=== PATIENT | male | born 1985 | race Caucasian/White ===

== ENCOUNTER 2019-05-07 03:44 | Emergency (ER) | payer OTHER, SELFPAY ==
--- NOTE | ~2019-05-07 | CT_ITS ---
EXAMINATION: CT abdomen pelvis w con DATE: 05/07/2019 04:47 INDICATION: Left upper quadrant abdominal pain TECHNIQUE: Computed tomography (CT) of the abdomen and pelvis was performed with 100 cc Omnipaque 350 intravenous contrast. The dose-length product was 342.69 mGy-cm. Automated exposure control and iter ative reconstruction technique were employed. COMPARISON: None. FINDINGS: Lung bases unremarkable. Heart size normal. No pleural or pericardial effusion. No signific ant vascular abnormality. No lymphadenopathy. The liver, spleen, pancreas, adrenal glands and kidneys are unremarkable. Gallbladder is present. Mil d sigmoid diverticulosis without diverticulitis. Mild bladder wall prominence, likely due to underdis tention, although cystitis should be considered in the appropriate clinical setting. No bowel obstruc tion. No free air or free fluid. IMPRESSION: 1. Mild bladder wall prominence, likely due to underdistention, although cystitis should be considere d in the appropriate clinical setting. Reviewed, dictated and finalized at location A. LIFT MULE OPERATOR IMPRESSION: 1. Mild bladder wall prominence, likely due to underdistention, although cystit is should be considered in the appropriate clinical setting.
--- NOTE | ~2019-05-07 | XR_ITS ---
[[id number] ] INDICATION: Left lower rib pain TECHNIQUE: Frontal projection of the upper left ribs, frontal projection of the lower left ribs, obli que projection of all the left ribs, frontal inspiratory chest x-ray for interpretation. FINDINGS: There are no displaced rib fractures identified. There are no soft tissue abnormality see n. The lungs are clear. IMPRESSION: 1:No displaced rib fractures. Reviewed, dictated and finalized at location A. EL MECHANIC HELPER
[2019-05-07 03:47] VITALS: BP 146/89; PULSE 71; RESP 18; TEMP 36.4; O2SAT 94
[2019-05-07 04:06] LABS: Basophils Absolute Auto 0.1 K/mm3 (0.0-0.1); Basophils Percent Auto 0.9 % (0.2-1.2); Eosinophils Absolute Auto 0.1 K/mm3 (0-0.3); Hematocrit 44.9 % (42.0-52.0); Hemoglobin 15.1 g/dL (14.0-18.0); Immature Granulocyte Absolute 0.01 K/mm3 (0.00-0.031); Immature Granulocyte Percent A 0.1 % (0-0.5); Lymphocytes Absolute Auto 2.24 K/mm3 (0.9-3.2); Lymphocytes Percent Auto 32.6 % (18.3-44.2); Mean Corpuscular HGB Conc 33.6 g/dl (32-36); Mean Corpuscular Hemoglobin 31.8 pg (26-34); Mean Corpuscular Volume 94.5 fl (80-100); Mean Platelet Volume 9.8 fl (7.4-10.4); Monocytes Absolute Auto 0.7 K/mm3 (0.1-0.6); Neutrophils Absolute Auto 3.7 K/mm3 (1.3-6.7); Neutrophils Percent Auto 54.4 % (45.5-73.1); Platelet Count Result 253 k/mm3 (150-375); Red Blood Count 4.75 M/mm3 (4.6-6.20); White Blood Count 6.9 K/mm3 (4.5-10.0)
[2019-05-07 04:15] LABS: Add Urine Microscopic? YES; Appearance Urine Clear (Clear); Bacteria Urine Trace /hpf; Bilirubin Urine Negative (Negative); Blood Urine Negative (Negative); Color Urine Yellow (Yellow); Glucose Urine UA Negative (Negative); Ketones Urine 1+ mg/dL (Negative); Leukocyte Esterase Ur Negative LEU/UL (Negative); Mucus Urine Heavy /lpf; Nitrate Urine Negative (Negative); Protein Urine 1+ mg/dL (Negative); RBC Urine 0-2 /hpf (0-2); Specific Grav Ur 1.025 (1.001-1.035); Urobilinogen Urine Negative mg/dL (<2.0); WBC Urine 0-3 /hpf
[2019-05-07 04:18] LABS: Alanine Aminotransferase 27 U/L (4-50); Albumin Level 4.8 g/dL (3.5-5.1); Alkaline Phosphatase 117 U/L (38-126); Aspartate Amino Transferase 37 U/L (17-59); Bilirubin,Total 0.5 mg/dL (0.2-1.3); Blood Urea Nitrogen 13 mg/dL (9-20); Calcium 9.4 mg/dL (8.4-10.2); Carbon Dioxide 25 mmol/L (22-30); Chloride 99 mmol/L (98-107); Estimated CRCL calculation 127 ml/min; Estimated Glomerular Filt Rate > 60; Glucose 110 mg/dL (75-110); Lipase 184 U/L (23-300); Potassium 3.6 mmol/L (3.4-5.0); Sodium 141 mmol/L (137-145)
[2019-05-07] MEDS: KETOROLAC 30 MG/ML VIAL (*BKC) IV PUSH (04:28)
[2019-05-07 04:58] VITALS: TEMP 36.4
--- NOTE | 2019-05-07 05:47 | ED.ABDPAIN ---
HPI - Abdominal Pain General Chief Complaint: Abdominal Pain Stated Complaint: abd pain Time Seen by Provider: 05/07/19 03:47 Source: RN notes reviewed History of Present Illness HPI narrative: Patient presents to emergency department from home for left lower lateral rib pain and upper abdominal pain. Patient states symptoms began 6 days ago. Pain is located over the left lateral ribs and into the left upper quadrant patient states the pain is worse with movement and pressing in the area. He denies any fevers or chills chest pain shortness of breath nausea vomiting diarrhea or any other symptoms. States he is taking a previous pain medication for the symptoms this evening. He denies any known trauma or injury. Related Data Allergies Allergy/AdvReac Type Severity Reaction Status Date / Time Penicillins Allergy Unknown Unknown Verified 05/07/19 03:53 Review of Systems Review of Systems: Narrative: Gen.: Denies fevers or chills ENT: Denies congestion Respiratory: Denies shortness of breath or cough CV: Denies chest pain or palpitations GI: See HPI denies burning, urgency, frequency or hematuria Musculoskeletal: Denies back pain or muscle pain Neuro: Denies numbness, tingling, weakness or focal weakness Skin: Denies rash Except as documented, all other systems reviewed and negative [facility] Past Medical History Medical History (Updated 05/07/19 @ 05:53 by Sai Washburn DO) Anxiety Social History Social History (Updated 05/07/19 @ 05:49 by Sai Washburn DO) Smoking packs per day: 0.25 Smoking cigarettes per day: 5.0 Exam Narrative: Exam Narrative: APPEARANCE: No acute distress, nontoxic, resting in bed HEENT: Normocephalic, atraumatic, OMM RESPIRATORY: No respiratory distress, clear to auscultation bilaterally with no rhonchi wheezing or rales CARDIOVASCULAR: RRR s murmur Chest: Tender palpation of the left lateral ribs 9 and 10 no overlying erythema or ecchymosis, pain with rotation of the torso and deep inspiration ABDOMINAL: Soft, nondistended, tender to palpation in left upper quadrant no tenderness in right upper quadrant, right lower quadrant and left lower quadrant, no rebound or guarding MUSCULOSKELETAl: Moves all extremities. No clubbing, cyanosis or edema. Bilateral calves soft nontender NEURO: Awake and alert. Following commands, speech normal, no focal deficits SKIN:: Warm, dry. Normal Color PSYCHIATRIC: Normal affect/mood Course Course Emergency Course: Patient states improvement of pain following medication. States while he is sitting in bed he has no pain. States he does have pain again when he begins to sit up and rotate but no pain with sitting and no motion Patient states that they are feeling much better at this time. States abdominal pain has resolved. Repeat abdominal exam shows the patient's abdomen to be soft and nontender. Discussed with patient results of workup and diagnosis. Discussed need for follow-up with primary care physician, reasons to return to the emergency department in proper use of medication. Patient understands and agrees to current treatment plan Vital Signs Vital signs: Vital Signs Temperature 97.6 F 05/07/19 03:47 Pulse Rate 71 05/07/19 03:47 Respiratory Rate 18 05/07/19 03:47 Blood Pressure 146/89 H 05/07/19 03:47 Pulse Oximetry 94 05/07/19 03:47 Temperature 97.6 F 05/07/19 04:58 Pulse Rate 71 05/07/19 03:47 Respiratory Rate 18 05/07/19 03:47 Blood Pressure 146/89 H 05/07/19 03:47 Pulse Oximetry 94 05/07/19 03:47 MDM - Abdominal Pain MDM Narrative Medical decision making narrative: Patient's abdomen is soft without significant pain or signs of surgical abdomen on serial exams. Lab and x-ray evaluations are reviewed and patient is felt to be a reasonable candidate for outpatient management. Patient was instructed as to limitations of x-ray and laboratory evaluation and encouraged to return to ED or primary physician for repe
[2019-05-07 06:01] VITALS: BP 139/90; PULSE 65; RESP 16; TEMP 36.6; O2SAT 99
== END 2019-05-07 06:04 | disposition home or self-care (01) ==
PROVIDERS: Emergency Provider Emergency Medicine; PCP Emergency Medicine
DX: R07.81 Pleurodynia (principal); R10.12 Left upper quadrant pain; F17.210 Nicotine dependence, cigarettes, uncomplicated
CPT/HCPCS: 36415; 71101; 74177; 80053; 81001; 83690; 85025; 96374; 99284; A9270; J1885; Q9967

== ENCOUNTER 2020-10-23 15:10 | Emergency (ER) | payer OTHER, SELFPAY ==
--- NOTE | ~2020-10-23 | XR_ITS ---
EXAMINATION: XR knee LT min 4V DATE: 10/23/2020 16:40 INDICATION: Left knee pain and swelling TECHNIQUE: Anteroposterior, 2 oblique and crosstable lateral views of the left knee were obtained COMPARISON: None. FINDINGS: Alignment is normal. No fracture. No joint effusion/layering lipohemarthrosis. Prominent prepatellar soft tissue swelling. IMPRESSION: 1. Patellar soft tissue swelling. No joint effusion or osseous abnormality. Reviewed, dictated and finalized at location A.
--- NOTE | ~2020-10-23 | XR_ITS ---
EXAMINATION: XR lumbar spine 2-3V DATE: 10/23/2020 16:43 INDICATION: Back pain TECHNIQUE: Anteroposterior and lateral views of the lumbar spine, and cone-down lateral view of the l umbosacral junction were obtained. COMPARISON: None. FINDINGS: Alignment is normal. Vertebral body and disc heights are normal. Sacrum and bilateral sacroiliac join ts are normal. Normal bowel gas pattern. IMPRESSION: 1. Negative lumbar spine radiographs. Reviewed, dictated and finalized at location A.
[2020-10-23 15:36] VITALS: BP 152/91; PULSE 96; RESP 16; TEMP 37.2; O2SAT 100
[2020-10-23 15:57] VITALS: BP 142/60; PULSE 96; RESP 16; TEMP 36.8; O2SAT 100
[2020-10-23 17:25] LABS: Add Urine Microscopic? YES; Appearance Urine Clear (Clear); Bilirubin Urine Negative (Negative); Blood Urine Negative (Negative); Color Urine Colorless (Yellow); Glucose Urine UA Negative (Negative); Ketones Urine 1+ mg/dL (Negative); Leukocyte Esterase Ur Negative LEU/UL (Negative); Nitrate Urine Negative (Negative); Protein Urine Negative (Negative); Urobilinogen Urine Negative mg/dL (<2.0)
[2020-10-23 17:27] LABS: Specific Grav Ur 1.004 (1.001-1.035)
--- NOTE | 2020-10-23 17:52 | ED.LOWEXIN ---
HPI - Extremity Injury (Lower) General Chief Complaint: Extremity Injury, Lower Stated Complaint: pain to lillian flanks/knee swelling Time Seen by Provider: 10/23/20 16:00 Source: patient Mode of arrival: ambulatory Limitations: no limitations History of Present Illness HPI Narrative: 35-year-old with no major medical problems here with complaints of left knee pain and swelling noticed this afternoon. Patient works as a robles , was on his knees this morning patient also states that he has been having intermittent lower back pain. He is worried his kidneys may be affected. He denies any fever or chills. No history of trauma. Onset (ago): day(s) (1) Injury: Left: knee Place: work Severity: moderate Relieving factors: nothing Exacerbating factors: nothing Context: other (Kneeling down on his knee at work) Other symptoms: none Related Data Allergies Allergy/AdvReac Type Severity Reaction Status Date / Time Penicillins Allergy Unknown Unknown Verified 10/23/20 16:02 Review of Systems Review of Systems: All systems reviewed & are unremarkable except as noted in HPI and below Constitutional: Constitutional: Reports no additional constitutional complaints ENT: Reports system reviewed and no additional complaints, except as documented Cardiovascular: Cardiovascular: Reports no additional cardiovascular complaints Respiratory: Respiratory: Reports no additional respiratory complaints Gastrointestinal: Gastrointestinal: Reports no additional gastrointestinal complaints Genitourinary: Genitourinary: Reports as per HPI Musculoskeletal: Musculoskeletal: Reports as per HPI Neurologic: Reports system reviewed and no additional complaints, except as documented [facility] Past Medical History Medical History Anxiety Social History Social History Smoking packs per day: 0.25 Smoking cigarettes per day: 5.0 Exam Narrative: GENERAL: Well-appearing, thin, and in no acute distress. HEAD: Normocephalic, atraumatic. EYES: PERRLA and EOMI. NECK: Supple. CHEST: Clear to auscultation. No respiratory distress. HEART: Regular rate and rhythm. No murmur heard. Normal peripheral pulses. EXTREMITIES: Normal range of motion. Left knee shows subpatellar effusion SKIN: Warm, dry, no rash. NEURO: No focal deficits. Effusion and oriented x3. PSYCH: Normal mood and affect. Course Course Emergency Course: Inform patient about his x-ray and urine analysis. Advised him to wear knee protectors while you are kneeling down. Take pain medication as prescribed. Vital Signs Vital signs: Vital Signs Temperature 37.2 C 10/23/20 15:36 Pulse Rate 96 10/23/20 15:36 Respiratory Rate 16 10/23/20 15:36 Blood Pressure 152/91 H 10/23/20 15:36 Pulse Oximetry 100 10/23/20 15:36 Temperature 36.8 C 10/23/20 15:57 Pulse Rate 96 10/23/20 15:57 Respiratory Rate 16 10/23/20 15:57 Blood Pressure 142/60 H 10/23/20 15:57 Pulse Oximetry 100 10/23/20 15:57 MDM - Extremity Injury (Lower) Lab Data Labs: Lab Results 10/23/20 Range/Units 17:02 Urine Color Colorless (Yellow) Urine Appearance Clear (Clear) Urine pH 7.0 (5.0-9.0) Ur Specific [place] 1.004 (1.001-1.035) Urine Protein Negative (Negative) mg/dL Urine Glucose (UA) Negative (Negative) mg/dL Urine Ketones 1+ H (Negative) mg/dL Ur Blood (Man) Negative (Negative) Urine Nitrate Negative (Negative) Urine Bilirubin Negative (Negative) Urine Urobilinogen Negative (<2.0) mg/dL Leukocyte Esterase Rfl Negative (Negative) KARY/UL Imaging Data Radiologist's impression: ITS Impressions Knee X-Ray 10/23/20 16:42 IMPRESSION: 1. Patellar soft tissue swelling. No joint effusion or osseous abnormality. Lumbar Spine X-Ray 10/23/20 16:45 IMPRESSION: 1. Negative lumbar spine radiographs. Disch
== END 2020-10-23 18:24 | disposition home or self-care (01) ==
PROVIDERS: Emergency Provider Family Medicine; PCP Emergency Medicine
DX: M70.42 Prepatellar bursitis, left knee (principal)
CPT/HCPCS: 72100; 73564; 81001; 99284

== ENCOUNTER → 2020-12-19 16:23 | Outpatient (CLI) | payer OTHER, SELFPAY ==
--- NOTE | ~2020-12-19 | XR_ITS ---
XR chest 2V DATE: 12/19/2020 16:34 INDICATION: Cough for 3 weight TECHNIQUE: PA and lateral views COMPARISON: 04/02/2006 expiration PA chest with left rib series FINDINGS: Normal heart size. No hilar or mediastinal enlargement. Bilateral hyperinflation. No pulmonary infiltrate or consolidation, pleural effusion or pulmonary vas cular congestion or pneumothorax. IMPRESSION: Bilateral hyperinflation; no active cardiopulmonary disease Reviewed, dictated and finalized at location A.
== END ==
PROVIDERS: PCP Emergency Medicine; Visit Provider Emergency Medicine
DX: R05.9 Cough, unspecified (principal); R91.8 Other nonspecific abnormal finding of lung field
CPT/HCPCS: 71046

== ENCOUNTER → 2020-12-20 03:43 | Outpatient (CLI) | payer OTHER, SELFPAY ==
[2020-12-20 17:41] LABS: SARS-CoV-2 RNA PCR Negative
== END ==
PROVIDERS: PCP Emergency Medicine; Visit Provider Emergency Medicine
DX: Z20.822 Contact with and (suspected) exposure to COVID-19 (principal)
CPT/HCPCS: C9803; U0003; U0005

== ENCOUNTER 2021-02-20 12:18 | Outpatient (CLI) | payer OTHER, SELFPAY ==
--- NOTE | ~2021-02-20 | XR_ITS ---
EXAMINATION: XR chest 2V EXAM DATE: 02/20/2021 12:54 INDICATION: Cough, shortness of breath. Viral infection. TECHNIQUE: Frontal and lateral projections of the chest obtained and reviewed. Comparison is made to prior examination from 12/19/2020. FINDINGS: The lungs are clear. There are no pleural effusions. The cardiomediastinal silhouette is within normal limits. There is no pneumothorax suspected. The bones and soft tissues are unremarkab le. IMPRESSION: No acute cardiopulmonary findings. Reviewed, dictated and finalized at location A. ICAL SUPPLIES STERILIZER
[2021-02-20 13:39] LABS: Monoscreen Negative (Negative); Negative Monotest Control Negative (Negative); Positive Monotest Control Positive (Positive)
[2021-02-20 13:53] LABS: Influenza Control Positive
== END 2021-02-20 12:19 | disposition home or self-care (01) ==
PROVIDERS: PCP Emergency Medicine; Visit Provider Emergency Medicine
DX: B34.9 Viral infection, unspecified (principal)
CPT/HCPCS: 71046; 86308; 87420; 87804

== ENCOUNTER 2022-03-18 22:30 | Emergency (ER) | payer OTHER, SELFPAY ==
--- NOTE | ~2022-03-18 | CT_ITS ---
CT Abdomen and Pelvis with contrast. History: Abdominal pain. Spiral CT of the abdomen and pelvis was performed after the administration of intravenous contrast. 1 00 cc of Omnipaque 350 was administered intravenously without complication. Dose reduction technique was used on this scan by utilizing automated exposure control and iterative reconstruction technique. The dose-length product (DLP) was 237.77 mGy-cm. COMPARISON: 05/07/2019 Findings: Scans through the lung bases demonstrate mild atelectatic change. The liver, spleen, pancreas, gallbladder, adrenals and kidneys are within normal limits. No evidence of aortic aneurysm. No lymphadenopathy is seen. There is no evidence of bowel obstruction. There is no evidence to suggest acute appendicitis or dive rticulitis. Images through the pelvis were performed. Urinary bladder unremarkable. Prostate gland and seminal ve sicles are unremarkable. No ascites is seen. Impression: No significant abnormalities seen. Reviewed, dictated and finalized at [facility]. UNT SUPPORT SPECIALIST Impression: No significant abnormalities seen.
[2022-03-18 22:43] VITALS: BP 144/87; PULSE 89; RESP 18; TEMP 37.4; O2SAT 100
[2022-03-18 23:16] LABS: Basophils Percent Auto 0.5 % (0.2-1.2); Eosinophils Percent Auto 0.2 % (0-4.4); Hematocrit 41.3 % (42.0-52.0); Hemoglobin 14.3 g/dL (14.0-18.0); Immature Granulocyte Absolute 0.02 K/mm3 (0.00-0.031); Immature Granulocyte Percent A 0.3 % (0-0.5); Lymphocytes Absolute Auto 1.05 K/mm3 (0.9-3.2); Lymphocytes Percent Auto 16.1 % (18.3-44.2); Mean Corpuscular HGB Conc 34.6 g/dl (32-36); Mean Corpuscular Hemoglobin 31.4 pg (26-34); Mean Corpuscular Volume 90.8 fl (80-100); Mean Platelet Volume 9.2 fl (7.4-10.4); Monocytes Absolute Auto 0.7 K/mm3 (0.1-0.6); Monocytes Percent Auto 11.2 % (2.6-8.5); Neutrophils Absolute Auto 4.7 K/mm3 (1.3-6.7); Neutrophils Percent Auto 71.7 % (45.5-73.1); Platelet Count Result 218 k/mm3 (150-375); Red Blood Count 4.55 M/mm3 (4.6-6.20); Red Cell Distribution Width 11.9 % (11.5-14.5); White Blood Count 6.5 K/mm3 (4.5-10.0)
[2022-03-18 23:25] LABS: Alanine Aminotransferase 28 U/L (6-50); Albumin Level 4.2 g/dL (3.5-5.1); Alkaline Phosphatase 87 U/L (38-126); Anion Gap 9 mmol/L (8-16); Aspartate Amino Transferase 35 U/L (17-59); Bilirubin,Total 0.5 mg/dL (0.2-1.3); Blood Urea Nitrogen 6 mg/dL (9-20); Calcium 8.7 mg/dL (8.4-10.2); Carbon Dioxide 25 mmol/L (22-30); Chloride 100 mmol/L (98-107); Estimated CRCL calculation 114 ml/min; Estimated Glomerular Filt Rate > 60; Glucose 124 mg/dL (65-110); Lipase 114 U/L (23-300); Potassium 3.4 mmol/L (3.4-5.0); Sodium 134 mmol/L (137-145)
[2022-03-18 23:32] LABS: Add Urine Microscopic? YES; Appearance Urine Clear (Clear); Bilirubin Urine Negative (Negative); Blood Urine Negative (Negative); Color Urine Yellow (Yellow); Glucose Urine UA Negative (Negative); Ketones Urine 2+ mg/dL (Negative); Leukocyte Esterase Ur Negative LEU/UL (Negative); Nitrate Urine Negative (Negative); Protein Urine Negative (Negative); Specific Grav Ur <= 1.005 (1.001-1.035); Urobilinogen Urine 0.2 mg/dL (<2.0)
[2022-03-18 23:57] LABS: Mucus Urine Rare /lpf; RBC Urine 0-2 /hpf (0-2); WBC Urine 0-3 /hpf
--- NOTE | 2022-03-19 00:15 | ED.ABDPAIN ---
HPI - Abdominal Pain General Chief Complaint: Abdominal Pain Stated Complaint: Abd pain/ flank pain Time Seen by Provider: 03/19/22 00:06 History of Present Illness HPI narrative: Mr. Leggett is a 36-year-old gentleman who presented emergency room with complaints of right upper quadrant pain and nausea vomiting that started yesterday. Patient states he has also had multiple episodes of diarrhea over the last 2 days. Patient states he has had a fever of 101? F at home, but the fevers did improve without any intervention. Patient denies any sick contacts. Patient denies any recent travel. Patient denies any new food up. Patient states he has not had any nausea vomiting today, but he has had diarrhea today. Patient states he does have right upper quadrant pain more so than left upper quadrant pain. Patient states he also has had epigastric pain. Patient denies any dysuria, hematuria, frequency, or urgency. Related Data Allergies Allergy/AdvReac Type Severity Reaction Status Date / Time Penicillins Allergy Unknown Unknown Verified 10/23/20 16:02 Review of Systems Review of Systems: A 12 point review of systems was completed patient all pertinent positive and negative per HPI the remainder are unremarkable. PMFSH Past Medical History Medical History Anxiety Social History Social History Smoking packs per day: 0.25 Smoking cigarettes per day: 5.0 Exam Narrative: Constitutional: Patient is well-nourished in no acute distress. Patient is alert and oriented x3 HEENT: Moist mucous membranes. No scleral icterus. No lymphadenopathy. Neck: No carotid bruits noted no JVD noted Lungs: Lung sounds are clear to auscultation bilaterally. No accessory muscle use. No rhonchi, rales, or wheezes noted. Cardiovascular: Apical pulse is regular rate and rhythm. S1-S2 noted, no S3 or S4 noted. No gallops, murmurs, or rubs noted. Abdomen: Soft and round. Patient c/o tenderness to bilateral upper quadrants right greater than left. No palpable masses. Extremities: No edema. Nontender. Skin: No rashes or lesions. Warm and dry. Skin is intact. Neurological: No focal neurological deficits. Cranial nerves II-XII grossly intact. Psychiatric: Cooperative, appropriate mood, and affect Course Course Emergency Course: Patient states that his pain has significantly improved after being in the emergency room. Patient states that he is mildly a friend that his pain will return. Did discuss with patient that he did have gastroenteritis with his large amount of diarrhea he does have gas and stool noted to his colon and that he would definitely benefit from ambulation. Also discussed with patient that a very bland diet would be the best approach to oral intake over the next few days. Patient verbalized understanding to above plan. Vital Signs Vital signs: Vital Signs Temperature 37.4 C 03/18/22 22:43 Pulse Rate 89 03/18/22 22:43 Respiratory Rate 18 03/18/22 22:43 Blood Pressure 144/87 H 03/18/22 22:43 Pulse Oximetry 100 03/18/22 22:43 Oxygen Delivery Room Air 03/18/22 22:43 Temperature 37.4 C 03/18/22 22:43 Pulse Rate 89 03/18/22 22:43 Respiratory Rate 18 03/18/22 22:43 Blood Pressure 144/87 H 03/18/22 22:43 Pulse Oximetry 100 03/18/22 22:43 Oxygen Delivery Room Air 03/18/22 22:43 MDM - Abdominal Pain Differential Diagnosis Differential diagnosis: Likely abdominal pain, calculus of kidney, gastroenteritis and other (Cholecystitis) Lab Data 03/18/22 23:10 03/18/22 23:10 Labs: Lab Results 03/18/22 03/18/22 03/18/22 Range/Units 23:10 23:10 23:21 WBC 6.5 (4.5-10.0) K/mm3 RBC 4.55 L (4.6-6.20) M/mm3 Hgb 14.3 (14.0-18.0) g/dL Hct 41.3 L (42.0-52.0) % MCV 90.8 (80-100) fl MCH 31.4 (26-34) pg MCHC 34.6 (32-36) g/dl
[2022-03-19 04:36] VITALS: BP 112/72; PULSE 76; RESP 16; TEMP 36.7; O2SAT 98
== END 2022-03-19 04:38 | disposition home or self-care (01) ==
PROVIDERS: Emergency Medicine; Emergency Provider Nurse Practitioner Adult Health; PCP Emergency Medicine
DX: K52.9 Noninfective gastroenteritis and colitis, unspecified (principal); F17.210 Nicotine dependence, cigarettes, uncomplicated
CPT/HCPCS: 36415; 74177; 80053; 81001; 83690; 85025; 99284; Q9967